=== PATIENT | female | born 1960 | race Native Hawaiian/Other Pacific Islander ===

== ENCOUNTER 2018-02-09 14:46 | Outpatient (CLI) | payer BC | END 2018-02-09 18:00 | disposition home or self-care (01) | LOC: RAD 14:46 | DX: M54.12 Radiculopathy, cervical region (principal) ==

== ENCOUNTER 2018-03-02 09:23 | Outpatient (CLI) | payer BC | END 2018-03-02 21:56 | disposition home or self-care (01) | LOC: MRI 09:23 | DX: M54.12 Radiculopathy, cervical region (principal) ==

== ENCOUNTER 2019-05-28 10:58 | Emergency (ER) | payer BC ==
[~2019-05-28] VITALS: Ht 162.6 cm; Wt 54.4 kg
[2019-05-28 12:27] VITALS: BP 161/79; TEMP 97.7
== END 2019-05-28 12:27 | disposition home or self-care (01) ==
LOC: ED 10:58
PROC: 2W3CX1Z Immobilization of Right Lower Arm using Splint (ICD-10-PCS; principal; 2019-05-28)
DX: S52.501A Unspecified fracture of the lower end of right radius, initial encounter for closed fracture (principal); W19.XXXA Unspecified fall, initial encounter
CPT/HCPCS: 96372; 99283; J1885